=== PATIENT | female | born 1965 | race Caucasian/White ===

== ENCOUNTER → 2020-12-31 | Outpatient (REF) | LOC: LAB 10:34 | DX: Z00.00 Encounter for general adult medical examination without abnormal findings (principal); E03.9 Hypothyroidism, unspecified; E78.5 Hyperlipidemia, unspecified ==

== ENCOUNTER 2021-03-04 15:51 | Emergency (ER) | payer BC ==
[2021-03-04] MEDS ORDERED: PROGESTERONE100 MG PO (16:09)
[2021-03-04] MEDS ORDERED: ESTRACE 1MG1 MG/TAB PO (16:09)
[2021-03-04] MEDS ORDERED: VITAMIN C PUR1000 MG PO (16:09)
[2021-03-04] MEDS ORDERED: VITAMIN D3125 MC2 PO (16:10)
[2021-03-04] MEDS ORDERED: ZINC50 M4 PO (16:10)
[2021-03-04 16:35] LABS: ALBUMIN 4.1 g/dL (3.5-5.0); POTASSIUM 3.6 mmol/L (3.5-5.1)
[2021-03-04 16:37] LABS: TOTAL PROTEIN 7.2 g/dL (6.4-8.3)
[2021-03-04 16:39] LABS: TOTAL BILIRUBIN 0.7 mg/dL (0.2-1.2)
[2021-03-04 16:42] LABS: BASO # 0.02 K/mm3 (0.02-0.10); HEMOGLOBIN 14.3 g/dL (12.5-16.0); MEAN CELL VOLUME 82 fl (78-100); MEAN CORPUSCULAR HEMOGLOBIN 28 pg (27-31); MEAN CORPUSCULAR HGB CONC 34 g/dL (33-37); MEAN PLATELET VOLUME 10.5 fl (7.4-10.4); MONO # 0.38 K/mm3 (0.20-0.80); NEU # 1.96 K/mm3 (1.40-6.50); PLATELET COUNT 155 K/mm3 (130-400); RED BLOOD COUNT 5.14 M/mm3 (4.10-5.30); RED CELL DISTRIBUTION WIDTH 12.9 % (11.5-14.5); WHITE BLOOD COUNT 3.3 K/mm3 (4.8-10.8)
[2021-03-04 19:34] VITALS: BP 100/56
== END 2021-03-04 19:35 | disposition home or self-care (01) ==
LOC: ED 15:51
PROVIDERS: Nurse Practitioner
DX: U07.1 COVID-19 (principal); E83.2 Disorders of zinc metabolism
CPT/HCPCS: J1885; J2405; J2550; J7030

== ENCOUNTER → 2021-04-05 | Outpatient (CLI) | payer BC ==
[~2021-04-05] MED LIST: ESTRACE 1MG1 MG/TAB PO; PROGESTERONE100 MG PO; VITAMIN C PUR1000 MG PO; VITAMIN D3125 MC2 PO; ZINC50 M4 PO
== END ==
LOC: LAB 09:33
DX: E78.5 Hyperlipidemia, unspecified (principal)

== ENCOUNTER → 2021-11-11 | Outpatient (CLI) | payer BC ==
[2021-11-11 13:06] LABS: POTASSIUM 3.9 mmol/L (3.5-5.1)
[2021-11-11 13:07] LABS: BASO # 0.03 K/mm3 (0.02-0.10); CALCIUM 9.1 mg/dL (8.3-10.5); EOS # 0.28 K/mm3 (0.04-0.40); EOS % 5.1 % (1.0-5.0); HEMATOCRIT 38.3 % (37.0-47.0); HEMOGLOBIN 12.8 g/dL (12.5-16.0); MEAN CELL VOLUME 85 fl (78-100); MEAN CORPUSCULAR HEMOGLOBIN 29 pg (27-31); MEAN CORPUSCULAR HGB CONC 33 g/dL (33-37); MEAN PLATELET VOLUME 10.9 fl (7.4-10.4); MONO # 0.49 K/mm3 (0.20-0.80); NEU # 2.24 K/mm3 (1.40-6.50); PLATELET COUNT 229 K/mm3 (130-400); RED BLOOD COUNT 4.49 M/mm3 (4.10-5.30); RED CELL DISTRIBUTION WIDTH 12.9 % (11.5-14.5); WHITE BLOOD COUNT 5.4 K/mm3 (4.8-10.8)
[2021-11-11 13:08] LABS: TOTAL PROTEIN 6.8 g/dL (6.4-8.3)
[2021-11-11 13:10] LABS: TOTAL BILIRUBIN 0.6 mg/dL (0.2-1.2)
[2021-11-12 08:42] LABS: CORTISOL RANDOM 8 ug/dL (3-20)
[2021-11-17 05:45] LABS: ASPERGILLUS FUMIGATUS AL COUNT <0.10 kU/L (()); BOX ELDER-MAPLE ALLERGEN COUNT <0.10 kU/L (()); CAT DANDER ALLERGEN COUNT <0.10 kU/L (()); CLADOSPORIUM ALLERGEN COUNT <0.10 kU/L (())
[2021-11-17 05:46] LABS: ALTERNARIA TENUIS CNT <0.10 kU/L (()); BERMUDA GRASS ALLERGEN COUNT <0.10 kU/L (()); COCKROACH ALLERGEN COUNT <0.10 kU/L (()); CODFISH ALLERGEN COUNT <0.10 kU/L (()); COTTONWOOD TREE ALLERGEN COUNT <0.10 kU/L (()); DOG DANDER ALLERGEN COUNT <0.10 kU/L (()); DUST MITES (D.F.) ALLERG COUNT 0.28 kU/L (()); DUST MITES (D.P.) ALLERG COUNT 0.97 kU/L (()); EGG WHITE ALLERGEN COUNT <0.10 kU/L (()); ELM TREE ALLERGEN COUNT <0.10 kU/L (()); FIREBUSH ALLERGEN COUNT <0.10 kU/L (()); MILK ALLERGEN COUNT <0.10 kU/L (()); OAK ALLERGEN COUNT <0.10 kU/L (()); PEANUT ALLERGEN COUNT <0.10 kU/L (()); ROUGH MARSH ELDER ALLERG COUNT 0.19 kU/L (()); RUSSIAN THISTLE ALLERGEN COUNT <0.10 kU/L (()); SOYBEAN ALLERGEN COUNT <0.10 kU/L (()); WHEAT ALLERGEN COUNT <0.10 kU/L (())
== END ==
LOC: LAB 12:34
PROVIDERS: Family Medicine
DX: M47.812 Spondylosis without myelopathy or radiculopathy, cervical region (principal); E78.5 Hyperlipidemia, unspecified; M54.50 Low back pain, unspecified; I95.1 Orthostatic hypotension; M19.90 Unspecified osteoarthritis, unspecified site; J30.2 Other seasonal allergic rhinitis; E16.1 Other hypoglycemia

== ENCOUNTER → 2022-01-20 | Outpatient (CLI) | payer BC | LOC: RAD 15:24 | DX: M17.11 Unilateral primary osteoarthritis, right knee (principal); M19.011 Primary osteoarthritis, right shoulder; M75.31 Calcific tendinitis of right shoulder ==

== ENCOUNTER 2022-03-14 17:06 | Emergency (ER) | payer BC ==
[~2022-03-14] VITALS: Ht 162.6 cm; Wt 66.0 kg
[2022-03-14 18:03] LABS: BASO # 0.03 K/mm3 (0.02-0.10); EOS # 0.15 K/mm3 (0.04-0.40); EOS % 3.7 % (1.0-5.0); HEMATOCRIT 40.6 % (37.0-47.0); HEMOGLOBIN 13.8 g/dL (12.5-16.0); LYMPH# 1.48 K/mm3 (1.50-4.00); MEAN CELL VOLUME 84 fl (78-100); MEAN CORPUSCULAR HEMOGLOBIN 29 pg (27-31); MEAN CORPUSCULAR HGB CONC 34 g/dL (33-37); MEAN PLATELET VOLUME 10.1 fl (7.4-10.4); MONO # 0.66 K/mm3 (0.20-0.80); NEU # 1.72 K/mm3 (1.40-6.50); PLATELET COUNT 228 K/mm3 (130-400); RED BLOOD COUNT 4.85 M/mm3 (4.10-5.30); RED CELL DISTRIBUTION WIDTH 12.5 % (11.5-14.5); WHITE BLOOD COUNT 4.1 K/mm3 (4.8-10.8)
[2022-03-14 18:15] LABS: ALBUMIN 3.8 g/dL (3.5-5.0)
[2022-03-14 18:16] LABS: CALCIUM 8.4 mg/dL (8.3-10.5)
[2022-03-14 18:19] LABS: TOTAL BILIRUBIN 0.8 mg/dL (0.2-1.2); TOTAL PROTEIN 6.5 g/dL (6.4-8.3)
[2022-03-14 20:43] LABS: URINE APPEARANCE CLOUDY; URINE COLOR YELLOW
[2022-03-14 20:44] LABS: URINE BILIRUBIN NEGATIVE (NEGATIVE); URINE BLOOD TRACE (NEGATIVE); URINE GLUCOSE NEGATIVE (NEGATIVE); URINE KETONE NEGATIVE (NEGATIVE); URINE LEUKOCYTE ESTERASE 2+ (NEGATIVE); URINE MUCUS PRESENT (NOT PRESENT); URINE NITRATE NEGATIVE (NEGATIVE); URINE PROTEIN(semi-quant) 1+ (NEGATIVE); URINE WBC >50 /hpf (0-3)
[2022-03-14] MEDS ORDERED: MACROBID 100 M100 MG PO (21:07)
[2022-03-14] MEDS ORDERED: PROMETHAZINE12.5 M5 PO (21:15)
[2022-03-14] MEDS ORDERED: K-TAB20 MEQ PO (21:15)
[2022-03-14] MEDS ORDERED: ZOFRAN ODT4 MG PO (21:15)
[2022-03-14 21:51] VITALS: BP 116/88
== END 2022-03-14 21:45 | disposition home or self-care (01) ==
LOC: ED 17:06
PROVIDERS: Physician Assistant
DX: J10.89 Influenza due to other identified influenza virus with other manifestations (principal); E87.6 Hypokalemia; N39.0 Urinary tract infection, site not specified; Z88.0 Allergy status to penicillin; Z28.310 Unvaccinated for COVID-19; Z20.822 Contact with and (suspected) exposure to COVID-19
CPT/HCPCS: J2405; J2550; J7030

== ENCOUNTER → 2022-04-04 | Outpatient (CLI) | payer BC ==
[~2022-04-04] MED LIST changes: +K-TAB20 MEQ PO; +MACROBID 100 M100 MG PO; +PROMETHAZINE12.5 M5 PO; +ZOFRAN ODT4 MG PO
[2022-04-04 16:48] LABS: CLUE CELLS NOT OBSERVED (Not Observd)
== END ==
LOC: LAB 14:33
PROVIDERS: Nurse Practitioner
DX: Z01.89 Encounter for other specified special examinations (principal)
CPT/HCPCS: Q0111

== ENCOUNTER → 2023-06-06 | Outpatient (CLI) | payer BC | LOC: LAB 14:04 | DX: Z01.812 Encounter for preprocedural laboratory examination (principal) ==

== ENCOUNTER 2023-07-15 08:30 | Emergency (ER) | payer BC ==
[~2023-07-15] VITALS: Ht 162.6 cm; Wt 62.3 kg
[2023-07-15] MEDS ORDERED: ED TYLENOL6 UDTAB/BO PO (08:45)
[2023-07-15 09:13] LABS: BASO # 0.03 K/mm3 (0.02-0.10); EOS # 0.02 K/mm3 (0.04-0.40); EOS % 0.2 % (1.0-5.0); HEMATOCRIT 36.2 % (37.0-47.0); HEMOGLOBIN 12.3 g/dL (12.5-16.0); LYMPH# 1.24 K/mm3 (1.50-4.00); MEAN CELL VOLUME 84 fl (78-100); MEAN CORPUSCULAR HEMOGLOBIN 29 pg (27-31); MEAN CORPUSCULAR HGB CONC 34 g/dL (33-37); MEAN PLATELET VOLUME 10.3 fl (7.4-10.4); MONO # 0.41 K/mm3 (0.20-0.80); NEU # 6.44 K/mm3 (1.40-6.50); PLATELET COUNT 274 K/mm3 (130-400); RED BLOOD COUNT 4.29 M/mm3 (4.10-5.30); WHITE BLOOD COUNT 8.2 K/mm3 (4.8-10.8)
[2023-07-15] MEDS ORDERED: NS 1,000 ML IV SCH (09:15)
[2023-07-15] MEDS ORDERED: Ondansetron 4 MG/2 ML VIAL IV ONE (09:15)
[2023-07-15] MEDS ORDERED: Ketorolac 30 MG/ML VIAL IV ONE (09:15)
[2023-07-15 09:16] LABS: ALBUMIN 3.9 g/dL (3.5-5.0)
[2023-07-15 09:18] LABS: CALCIUM 9.5 mg/dL (8.3-10.5)
[2023-07-15] MEDS ORDERED: ZOFRAN ODT4 MG PO (10:23)
[2023-07-15] MEDS ORDERED: Polyethylene Glycol 3350 Powder 17 GM PACKET PO ONE (10:30)
[2023-07-15 10:57] LABS: URINE APPEARANCE CLEAR (CLEAR); URINE COLOR YELLOW (YELLOW)
[2023-07-15 10:58] LABS: URINE BILIRUBIN NEGATIVE (NEGATIVE); URINE BLOOD NEGATIVE (NEGATIVE); URINE GLUCOSE NEGATIVE (NEGATIVE); URINE KETONE 3+ (NEGATIVE); URINE LEUKOCYTE ESTERASE NEGATIVE (NEGATIVE); URINE NITRATE NEGATIVE (NEGATIVE); URINE PROTEIN(semi-quant) NEGATIVE (NEGATIVE)
[2023-07-15 11:02] LABS: URINE WBC 0-1 /hpf (0-3)
[2023-07-15 11:50] VITALS: BP 112/71
== END 2023-07-15 11:14 | disposition home or self-care (01) ==
LOC: ED 08:30
PROVIDERS: Physician Assistant
DX: G43.909 Migraine, unspecified, not intractable, without status migrainosus (principal); K59.00 Constipation, unspecified; Z88.0 Allergy status to penicillin; Z88.5 Allergy status to narcotic agent
CPT/HCPCS: J1885; J2405; J7030

== ENCOUNTER → 2024-06-27 | Outpatient (CLI) | payer BC ==
[~2024-06-27] MED LIST changes: +ED TYLENOL6 UDTAB/BO PO
[2024-06-27 10:38] LABS: BASO # 0.03 K/mm3 (0.02-0.10); EOS # 0.22 K/mm3 (0.04-0.40); EOS % 4.8 % (1.0-5.0); HEMATOCRIT 39.6 % (37.0-47.0); HEMOGLOBIN 13.1 g/dL (12.5-16.0); LYMPH# 2.19 K/mm3 (1.50-4.00); MEAN CELL VOLUME 86 fl (78-100); MEAN CORPUSCULAR HEMOGLOBIN 28 pg (27-31); MEAN CORPUSCULAR HGB CONC 33 g/dL (33-37); MEAN PLATELET VOLUME 9.8 fl (7.4-10.4); MONO # 0.42 K/mm3 (0.20-0.80); PLATELET COUNT 227 K/mm3 (130-400); RED BLOOD COUNT 4.61 M/mm3 (4.10-5.30); WHITE BLOOD COUNT 4.6 K/mm3 (4.8-10.8)
[2024-06-27 10:48] LABS: ALBUMIN 4.1 g/dL (3.4-4.8); SODIUM 138 mmol/L (136-145)
[2024-06-27 10:49] LABS: CALCIUM 8.9 mg/dL (8.3-10.5)
[2024-06-27 10:51] LABS: GLUCOSE 80 mg/dL (65-105); TOTAL PROTEIN 7.1 g/dL (6.2-8.1)
[2024-06-27 10:52] LABS: CARBON DIOXIDE 24 mmol/L (23-31)
[2024-06-27 10:53] LABS: TOTAL BILIRUBIN 1.1 mg/dL (0.2-1.2)
[2024-06-27 10:56] LABS: AST-SGOT 20 U/L (5-34)
[2024-06-27 10:57] LABS: ALT/SGPT 18 U/L (0-55)
--- NOTE | 2024-06-27 11:03 | NUR ---
EKG SHOWN TO DR. KEYSHA RODRIGUEZ RN. PT TO FOLLOW UP WITH DEVON Inman APRN.
== END ==
LOC: LAB 10:02
PROVIDERS: Nurse Practitioner
DX: G43.909 Migraine, unspecified, not intractable, without status migrainosus (principal); R00.1 Bradycardia, unspecified